=== PATIENT | female | born 1995 | race Asian ===

== ENCOUNTER 2018-03-19 12:53 | Emergency (ER) | payer OTHER ==
[~2018-03-19] VITALS: Ht 149.9 cm; Wt 45.8 kg
[2018-03-19 12:55] VITALS: BP 134/85
--- NOTE | 2018-03-19 13:14 | NUR ---
22 y/o female presents to ed with c/o left ear pain. PER PT "I WAS TREATED FOR AN EAR INFECTION, BUT I DON'T THINK IT'S BETTER." NO ACUTE DISTRESS NOTED.
--- NOTE | 2018-03-19 13:24 | NUR ---
Patient/Caregiver given discharge instructions and they have confirmed that they understand the instructions. Patient ambulatory with steady gait. PT LEFT WITH ALL PERSONAL BELONGINGS
== END 2018-03-19 13:26 | disposition home or self-care (01) ==
LOC: ED 13:22
DX: H60.12 Cellulitis of left external ear (principal); H92.02 Otalgia, left ear
CPT/HCPCS: 99283

== ENCOUNTER 2018-04-15 18:37 | Emergency (ER) | payer OTHER ==
[~2018-04-15] VITALS: Ht 152.4 cm; Wt 46.3 kg
--- NOTE | 2018-04-15 19:35 | NUR ---
Dr. Pack at bedside to evaluate pt.
--- NOTE | 2018-04-15 19:55 | NUR ---
Pt to imaging, with tech, via gutoi.
[2018-04-15 20:07] LABS: MEAN CORPUSCULAR HEMOGLOBIN 30.5 pg (27.0-34.8); MEAN CORPUSCULAR HGB CONC 33.9 g/dL (32.4-35.8); MEAN CORPUSCULAR VOLUME 89.8 fL (80-100); MEAN PLATELET VOLUME 8.3 fL (7.4-10.4); PLATELET COUNT 265 x10^3/uL (130-400); RED BLOOD COUNT 4.76 x10^6/uL (3.82-5.3); RED CELL DISTRIBUTION WIDTH 12.5 % (9.6-15.2)
[2018-04-15 20:15] LABS: ALANINE AMINOTRANSFERASE 18 U/L (12-78); ALBUMIN 4.2 g/dL (3.4-5.0); ANION GAP 6 mmol/L (5-15); CALCIUM 8.6 mg/dL (8.5-10.1); CHLORIDE 104 mmol/L (98-107); CREATININE 0.89 mg/dL (0.55-1.02)
[2018-04-15 20:16] LABS: MD YES
[2018-04-15 20:20] LABS: ALKALINE PHOSPHATASE 51 U/L (45-117); BILIRUBIN,TOTAL 0.7 mg/dL (0.2-1.0); TOTAL PROTEIN 9.1 g/dL (6.4-8.2)
[2018-04-15 20:28] LABS: <PLATELET ESTIMATE> ADEQUATE; <PLT MORPHOLOGY> NORMAL PLT MORPH; <RBC MORPHOLOGY> NORMAL; BAND#(MANUAL) 0.35 x10^3/uL; BANDS%(MANUAL) 2 % (0-7); BASOS#(MANUAL) 0.35 x10^3/uL (0-0.1); BASOS% (MANUAL) 2 % (0-1); LYMPH#(MANUAL) 3.19 x10^3/uL (1-3.4); LYMPHS% (MANUAL) 18 % (22-44); MONOS#(MANUAL) 0.71 x10^3/uL (0.3-2.7); MONOS% (MANUAL) 4 % (2-9); SEGS% (MANUAL) 74 % (42-75)
[2018-04-15] MEDS ORDERED: SODIUM CHLORIDE 0.9% 1,000ML IVBOLUS ONE ×2 (20:30→22:30)
[2018-04-15] MEDS ORDERED: SODIUM CHLORIDE FLUSH 10ML SYR IVF ONE (20:30)
--- NOTE | 2018-04-15 20:53 | NUR ---
PIV STARTED, IVF RUNNING.
[2018-04-15] MEDS ORDERED: KETOROLAC 30 MG/1 ML ONE (21:23)
[2018-04-15] MEDS ORDERED: MAALOX/HYOSCYAMINE/LIDOCAINE 45 ML BTL ONE (21:24)
--- NOTE | 2018-04-15 21:29 | NUR ---
Pt medicated per MAR and updated on POC. IVF complete.
[2018-04-15] MEDS ORDERED: MAALOX/HYOSCYAMINE/LIDOCAINE 45 ML BTL PO ONE (21:30)
[2018-04-15] MEDS ORDERED: KETOROLAC 30 MG/1 ML IVPush ONE (21:30)
--- NOTE | 2018-04-15 22:15 | NUR ---
2nd liter of fluids started. CT scan done, awaiting results.
[2018-04-15 23:14] VITALS: BP 100/54
--- NOTE | 2018-04-15 23:14 | NUR ---
Patient/Caregiver given discharge instructions and they have confirmed that they understand the instructions. Patient ambulatory with steady gait.
[2018-04-15] MEDS ORDERED: OMNIPAQUE 350 MG/ML, 100ML BOTTLE ONE (23:54)
== END 2018-04-15 23:17 | disposition home or self-care (01) ==
LOC: ED 21:21
DX: R19.7 Diarrhea, unspecified (principal); R10.84 Generalized abdominal pain
CPT/HCPCS: 36415; 74021; 74177; 80053; 83690; 84703; 85025; 96361; 96374; 99284; J1885; J7030; Q9967; 96360

== ENCOUNTER 2018-04-17 18:25 | Emergency (ER) | payer OTHER ==
[~2018-04-17] VITALS: Ht 152.4 cm; Wt 46.0 kg
[2018-04-17 19:01] VITALS: BP 125/90
[2018-04-17 19:34] LABS: ALBUMIN 3.7 g/dL (3.4-5.0); ANION GAP 6 mmol/L (5-15); CALCIUM 8.3 mg/dL (8.5-10.1); CHLORIDE 109 mmol/L (98-107)
[2018-04-17 19:36] LABS: BASOPHILS # (AUTO) 0.02 x10^3/uL (0-0.1); BASOPHILS % (AUTO) 0 % (0-1); EOSINOPHILS # (AUTO) 0.15 x10^3/uL (0-0.4); EOSINOPHILS % (AUTO) 2 % (1-7); LYMPHOCYTES # (AUTO) 1.28 x10^3/uL (1-3.4); LYMPHOCYTES % (AUTO) 18 % (22-44); MD NO; MEAN CORPUSCULAR HEMOGLOBIN 30.5 pg (27.0-34.8); MEAN CORPUSCULAR HGB CONC 34.1 g/dL (32.4-35.8); MEAN CORPUSCULAR VOLUME 89.7 fL (80-100); MEAN PLATELET VOLUME 8.1 fL (7.4-10.4); MONOCYTES # (AUTO) 1.05 x10^3/uL (0.2-0.8); MONOCYTES % (AUTO) 15 % (2-9); NEUTROPHILS # (AUTO) 4.63 x10^3/uL (1.8-6.8); NEUTROPHILS % (AUTO) 65 % (42-75); PLATELET COUNT 247 x10^3/uL (130-400); RED BLOOD COUNT 4.06 x10^6/uL (3.82-5.3); RED CELL DISTRIBUTION WIDTH 12.4 % (9.6-15.2)
[2018-04-17 19:37] LABS: ALANINE AMINOTRANSFERASE 19 U/L (12-78); ALKALINE PHOSPHATASE 41 U/L (45-117); BILIRUBIN,TOTAL 0.6 mg/dL (0.2-1.0); CREATININE 0.73 mg/dL (0.55-1.02); TOTAL PROTEIN 8.1 g/dL (6.4-8.2)
--- NOTE | 2018-04-17 21:14 | NUR ---
FROM LOBBY TO ROOM
--- NOTE | 2018-04-17 21:55 | NUR ---
REPORT TO STACI CROFT
== END 2018-04-17 22:40 | disposition home or self-care (01) ==
LOC: ED 22:13
DX: R19.7 Diarrhea, unspecified (principal); E87.6 Hypokalemia; M54.2 Cervicalgia; M25.512 Pain in left shoulder
CPT/HCPCS: 36415; 80053; 85025; 99283